=== PATIENT | male | born 1955 | race Caucasian/White ===

== ENCOUNTER → 2023-12-14 | Day surgery (SDC) | payer MEDICARE ==
[~2023-12-14] MED LIST: AMIODARONE HCL200 MG PO; ATORVASTATIN CA20 MG PO; CARVEDILOL3.125 MG PO; DEXTROSE 5% 250 ML BAG IV ONE; ENTRESTO 97 MG1 EACH PO; FENTANYL CITRATE/PF 100MCG/2 ML INJ ONE; FLOMAX0.4 MG PO; KERENDIA10 MG PO; LACTATED RINGER'S 1,000 ML ONE; LIDOCAINE HCL 2% LOCAL INJ 5 ML SDV VIAL INJ ONE; MIDAZOLAM HCL 2 MG/2 ML VIAL ONE; OMEPRAZOLE40 MG PO; OZEMPIC1 MG/0.71; OZEMPIC2 MG/0.75 SC; PROPOFOL IV EMULSION 10 MG/ML 20 ML VIAL ONE; SINEMET 25-1001 EACH PO; SPIRONOLACTONE25 MG PO; TRESIBA FL100 UNIT/1 SC; VASCEPA1 GM PO; VELTASSA8.4 GM PO; VITAMIN D250 MCG PO
[2023-12-14 16:32] VITALS: BP 142/86; PULSE 59; RESP 18; O2SAT 94
== END | disposition home or self-care (01) ==
LOC: OR 12:05
PROVIDERS: ATTEND Internal Medicine Gastroenterology
DX: K22.70 Barrett's esophagus without dysplasia (principal); K31.7 Polyp of stomach and duodenum; K29.70 Gastritis, unspecified, without bleeding; K22.89 Other specified disease of esophagus; K31.89 Other diseases of stomach and duodenum; K21.9 Gastro-esophageal reflux disease without esophagitis; I25.10 Atherosclerotic heart disease of native coronary artery without angina pectoris; I25.2 Old myocardial infarction; E78.5 Hyperlipidemia, unspecified; I11.0 Hypertensive heart disease with heart failure; I50.9 Heart failure, unspecified; I44.0 Atrioventricular block, first degree; R05.9 Cough, unspecified; Z88.0 Allergy status to penicillin; Z79.4 Long term (current) use of insulin; Z79.85 Long-term (current) use of injectable non-insulin antidiabetic drugs
CPT/HCPCS: 36415; 43239; 82948; J2001; J2250; J2704; J3010; J7121; 43251